=== PATIENT | male | born 1995 | race Caucasian/White ===

== ENCOUNTER 2017-10-22 07:30 | Emergency (ER) | payer SELFPAY ==
[2017-10-22 07:32] VITALS: BP 147/80; PULSE 104; RESP 16; TEMP 36.9; O2SAT 98; BMI 38.4
--- NOTE | 2017-10-22 07:45 | ED.DCSUM_ITS ---
- ER Visit Summary Date of Service: 10/22/17 Chief Complaint: Sore throat and uvular swelling History of Present Illness: The patient is a 21 M senior past medical history prior ear tubes surgically. Patient states he woke up this morning he had a mild sore throat and felt swelling in the back of his throat. No prior history of this. Able to swallow and breathe. No fever. Denies any nausea, vomiting or diarrhea. Physical Examination: Well-appearing young male. Vital signs are stable and afebrile. He does not look septic or toxic. He is in no distress. His pulse ox is 98% on room air no signs of hypoxia. He is laying back semi-reclined in no distress. HEENT exam both canals are full of wax I cannot see the tympanic membranes. Mr. pharynx is a red and swollen uvula. Mild pharyngeal erythema. No exudate. No peritonsillar abscess. This does not look like strep it looks like a viral pharyngitis uvulitis. He is able to swallow. Is not drooling. Neck is nontender. Trachea is midline and nontender. There is no lymphadenopathy. No meningismus. Lungs clear to auscultation bilaterally. Heart regular rhythm no murmur rate about 100. Abdomen soft and nontender. No organomegaly. He is moving all 4 extremities. Neurovascular intact. They are nontender. No edema. Skin without rashes. Back exam normal. Neurologic exam is normal. Test Results: None Emergency Department Course and Treatment: Since history and exam is consistent with a viral pharyngitis/uvulitis. Treatment Plan: Will be treated with prednisone for the inflammation. Warm salt water gargling. And Chloraseptic [place]. He knows return if feeling worse. Plenty of fluids and rest. Disposition: Discharge Impression: Acute viral pharyngitis/uvulitis This note was generated with [employer] dictation software. It may contain incorrect words, spelling, and punctuation that were not noted in review of the chart prior to signing ED Disposition - Plan for ED Patient: Chief Complaint: Other, Pain/Inj Referrals: Care Physician,No Primary [Primary Care Provider] -
--- NOTE | 2017-10-22 07:49 | DCINST.ED_ITS ---
ED Disposition - Plan for ED Patient: Disposition: Home or Assisted Living Chief Complaint: Other, Pain/Inj Instructions: ED Pharyngitis Viral, ED Uvulitis Prescriptions: Prednisone [Deltasone] 40 mg PO DAILY 3 Days tab Referrals: Miguelito Barajas MD [STAFF PHYSICIAN] - 3-5 Days if not improving Additional Instructions: Prednisone daily for 3 more days. Warm salt water gargling and Chloraseptic [place]. Tylenol and/or Motrin for discomfort. Follow-up with Dr. Miguelito Barajas if not improving. Generally this is caused by a virus and should continually improve over the next several days and resolved. The prednisone will help decrease the swelling. Return to ER if feeling a lot worse or having significant trouble breathing.
[2017-10-22 07:54] VITALS: BP 129/74; PULSE 67; RESP 15; O2SAT 99
== END 2017-10-22 08:02 | disposition home or self-care (01) ==
PROVIDERS: Emergency Provider Emergency Medicine
DX: J02.9 Acute pharyngitis, unspecified (principal); K12.2 Cellulitis and abscess of mouth; Z72.0 Tobacco use
CPT/HCPCS: 99283